=== PATIENT | male | born 1960 | race Caucasian/White ===

== ENCOUNTER → 2018-08-03 08:51 | Outpatient (CLI) | payer MEDICARE ==
[~2018-08-03] VITALS: Ht 185.4 cm; Wt 120.9 kg
--- NOTE | ~2018-08-03 | OP ---
PATIENT NAME: SARBJIT CONNER MEDICAL RECORD: [id number] :56 LOCATION:D.CAT ADMISSION DATE: SURGEON: DEBRA JOSE MD DATE OF OPERATION: 08/03/2018 PROCEDURES: 1. Aortic root angiography. 2. Left heart catheterization. 3. Selective coronary angiography. 4. Left ventriculogram. 5. Intravascular ultrasound of LAD. 6. PTCA and stent, LAD. 7. PTCA and stent, RCA. INDICATION: Unstable angina and coronary disease. PROCEDURE IN DETAIL: After informed consent was obtained with detailed description of risks and benefits as well as alternative therapies, the patient elected to proceed with angiogram and angioplasty. The right radial area was prepped and draped in normal sterile fashion. Right radial artery was cannulated via modified Seldinger technique with placement of 6-Gabonese sheath. All catheters were exchanged through this sheath. FINDINGS: Aortic root angiography was performed. The ascending root appears to be normal. There does not appear to be any aneurysmal dilatation. Left ventriculogram was performed in standard 30-degree BALDWIN view, reveals good cardiac wall motion throughout all segments. Overall ejection fraction estimated at 55% to 60%. SELECTIVE CORONARY ANGIOGRAPHY: 1. Left main shows no significant angiographic disease. 2. Left anterior descending has 80% stenosis, confirmed by intravascular ultrasound throughout the mid vessel. 3. Left circumflex has moderate irregularities, but no flow-limiting stenosis. 4. Right coronary has previously placed stents. There is 95% in-stent restenosis in the mid vessel. PTCA AND STENT OF LAD AND RCA: The LAD was addressed with a 3.5 x 22 and 3.5 x 8 mm Warren stents. The RCA was addressed with a 4.5 x 26 mm Warren stent. Result was 0% residual stenosis. OVERALL IMPRESSION: Successful PTCA and stent of the LAD and RCA, going from 80% to 95% initial stenoses to 0% residual. TRANSINT:[id number] Voice Confirmation ID: [id number] DOCUMENT ID: [id number] OPERATIVE REPORT [id number] SARBJIT CONNER JEFFREY MD at 1856 CC: [id number] DICTATION DATE: 08/03/18 1109 [employer] AND FORMER [employer]IC: 08/03/18 [id number] [place] [address]
--- NOTE | ~2018-08-03 | HEMODYNAMI ---
PATIENT:SARBJIT CONNER MEDICAL RECORD: [id number] : 56 LOCATION:[facility] ADMISSION DATE: 08/03/18 Generatedon:08/03/201811:11 Patient name: SARBJIT CONNER Patient #: [id number] SSN: : 1960 Date of study: 08/03/2018 Page: Of Hemodynamic Procedure Report Patient Data Patient Demographics Procedure consent was obtained First Name: SARBJIT Gender: Male Last Name: DALILA : 1960 Patient #: [id number] Age: 58 year(s) Race: Unknown Additional ID: [id number] Contact details [address]: [address] [place] [address] State: [place] City: [place] Zip code: [address] Admission Admission Data Admission Date: 08/03/2018 Admission Time: 8:51 Procedure Procedure Types Cath Procedure Diagnostic Procedure LHC LHC w/Coronaries FFR/IVUS Intra-Coronary IVUS Initial Aortic Root Angiography Sedation Charges Moderate Sedation up to 15 minutes PCI Procedure Coronary Stent Coronary Stent Initial x2 Procedure Description Procedure Date Procedure Date: 08/03/2018 Procedure Start Time: 10:42 Procedure End Time: 11:06 Procedure Staff Name Function Navjot Schneider MD Performing Physician Harika Ramírez RT Monitor Marie Cabrera RT Scrub Nereida Romero RN Nurse Procedure Data Cath Procedure Fluoroscopy Diagnostic fluoroscopy Total fluoroscopy Time: 7.7 time: 7.7 min min Diagnostic fluoroscopy Total fluoroscopy dose: dose: 1906 mGy 1906 mGy Contrast Material Contrast Material Type Amount (ml) Isovue 300 173 Entry Location Entry Primary Successful Side Size Upsize Upsize Entry Closure Luna ccessful Closure Location (Fr) 1 (Fr) 2 (Fr) Remarks Device Remarks Radial Right 6 Fr Mechanical artery Short Compression Estimated blood loss: 5 ml Diagnostic catheters Device Type Used For End Catheter Placement DIAGNOSTIC [place] 110cm 5 Multi-vessel Fr catheter ([id number]) Angiography DIAGNOSTIC Pigtail 5Fr Aortic Root catheter ([id number]) Angiography Procedure Complications No complications Procedure Medications Medication Administration Route Dosage Oxygen etCO2 Nasal cannula 2 l/min Lidocaine 2% added to field 20 Heparin Flush Bag added to field 2 bags (1000units/500ml NS) 0.9% NaCl I.V. 100 ml/hr Radial Cocktail I.A. 1 syringe (Verapomil 2mg/Nitro 400mcg/Heparin 1500units) Versed I.V. 2 mg Fentanyl I.V. 100 mcg Versed I.V. 1 mg Fentanyl I.V. 50 mcg Heparin Bolus I.V. 4000 units Integrilin (Bolus I.V. 10.7 ml 2mg/ml) Versed I.V. 1 mg Fentanyl I.V. 50 mcg Plavix P.O. 600 mg Hemodynamics Rest Heart Rate: 76 (bpm) Pressure Samples Time Site Value (mmHg) Purpose Heart Use Rate(bpm) 10:44 LV 109/-10,14 Snapshot 81 Snapshots Pre Cath Intra NCS Post Cath Vital Signs Time Heart Resp SPO2 etCO2 NIBP Rhythm Pain Sedation Rate (ipm) (%) (mmHg) (mmHg) Status Level (bpm) 10:12:52 75 16 94 0 121/70(95) NSR 0 (11) 10(A) , No pain 10:17:02 82 20 92 0 120/70(85) NSR 0 (11) 10(A) , No pain 10:21:14 74 17 94 25.6 107/60(84) NSR 0 (11) 10(A) , No pain 10:25:26 73 17 94 18.8 122/65(90) NSR 0 (11) 10(A) , No pain 10:29:40 75 15 93 37.7 112/63(86) NSR 0 (11) 10(A) , No pain 10:33:52 76 16 93 33.9 104/65(85) NSR 0 (11) 10(A) , No pain 10:38:01 75 15 93 36.2 100/64(83) NSR 0 (11) 9(A) , No pain 10:42:11 77 14 93 48.2 109/60(81) NSR 0 (11) 9(A) , No pain 10:46:27 77 13 92 36.9 92/49(72) NSR 0 (11) 9(A) , No pain 10:50:37 81 14 93 37.7 97/53(75) NSR 0 (11) 9(A) , No pain 10:54:43 82 14 92 39.9 96/57(72) NSR 0 (11) 9(A) , No pain 10:58:53 84 13 93 45.9 94/57(69) NSR 0 (11) 9(A) , No pain 11:03:03 87 25 93 37.6 106/52(79) NSR 0 (11) 9(A) , No pain 11:07:17 87 14 93 30.1 98/60(83) NSR 0 (11) 10(A) , No pain Medications Time Medication Route Dose Verified Delivered Reason Not es Effectiveness by by 10:15:33 Oxygen etCO2 2 l/min Navjotjordan Ramachandranie used for Nasal Jennie Romero RN procedure cannula 10:15:40 Lidocaine 2% added 20ml Navjotjordan Morfin for local to vial Jennie Schneider MD anesthetic field 10:15:45 Heparin Flush added 2 bags Navjot Morfin used for Bag to Jennie Schneider MD procedure (1000units/500ml field NS) 10:15:52 0.9% NaCl I.V. 100 Navjot Buffie Per physician ml/hr Jennie Romero RN 10:33:51 Versed I.V. 2 mg Navjot Ramachandranie for sedation Jennie Romero RN 10:33:57 Fentanyl I.V. 100 mcg Navjot Ramachandranie for sedation Jennie Romero RN 10:40:17 Versed I.V. 1 mg Navjot Ramachandranie for sedation Jennie Romero RN 10:40:21 Fentanyl I.V. 50 mcg Navjot Padron for sedation Jennie Romero RN 10:43:52 Radial Cocktail I.A. 1 Navjot Morfin for (Verapomil syringe Jennie Schneider MD vasodilation 2mg/Nitro 400mcg/Heparin 1500units) 10:48:45 Heparin Bolus I.V. 4000 Navjot Ramachandranie for LARISA IFIED units Jennie Romero RN anticoagulation WITH DR SCHNEIDER 10:51:58 Integrilin I.V. 10.7 ml Navjot Padron for WAS ALINE (Bolus 2mg/ml) Jennie Romero RN antiplatelet 9.3 ML therapy OF VIAL 10:57:47 Versed I.V. 1 mg Navjot Buffie for sedation Jennie Romero RN 10:57:50 Fentanyl I.V. 50 mcg Navjot quick sedation Jennie Romero RN 11:07:34 Plavix P.O. 600 mg Navjot Romero RN antiplatelet therapy Procedure Log Time Note 10:01:32 Diagnostic Cath Status : Elective 10:01:50 Nereida Romero RN sent for patient. Start room use. 10:01:51 Time tracking: Regular hours (M-F 7:00 - 5:00) 10:01:55 Plan of Care:Hemodynamics will remain stable., Cardiac rhythm will remain stable., Comfort level will be maintained., Respiratory function will remain adequate., Patient/ family verbilizes understanding of procedure., Procedure tolerated without complication., Recovers from procedure without complications.. 10:05:52 Patient received from Pre/Post Procedure Room to CCL 2 Alert and oriented. Tansferred to table in Supine position. 10:05:53 Warm blankets applied, and adi hugger turned on for patient comfort. 10:05:53 Correct patient and procedure confirmed by team. 10:05:54 Signed procedure consent form obtained from patient. 10:05:55 ECG and BP/O2 sat monitors applied to patient. 10:11:45 Vital chart was started 10:11:47 Baseline sample Acquired. 10:11:52 Rhythm: sinus rhythm 10:11:53 Full Disclosure recording started 10:11:57 H&P Date Dictated: 08/03/2018 Within 30 days and on chart., H&P Addendum completed by physician on day of procedure. (MUST COMPLETE FOR ALL OUTPATIENTS). 10:11:58 Pre-procedure instructions explained to patient. 10:11:59 Pre-op teaching completed and patient verbalized understanding. 10:12:02 Family in patients room. 10:12:04 Patient NPO since Midnight. 10:12:05 Is the patient allergic to Iodine/contrast media? No. 10:12:06 Was the patient premedicated? No 10:12:07 Is patient on blood thinner?Yes 10:12:39 patient states stopped Curly 08-01-18 10:12:50 Patient diabetic? No. 10:12:59 Previous problem with sedation/anesthesia? No ? 10:13:03 Snore? Yes 10:13:04 Sleep apnea? No 10:13:05 Deviated septum? No 10:13:06 Opens mouth fully? Yes 10:13:06 Sticks out tongue? Yes 10:13:11 Airway obstruction? Yes copd 10:13:13 Dentures? No ? 10:13:18 Pre procedure: right dorsailis pedis pulse 2+ Normal; easily identifiable; not easily obliterated 10:13:20 Pre procedure: left dorsailis pedis pulse 2+ Normal; easily identifiable; not easily obliterated 10:13:22 Patient pain scale 0/10 ?. 10:13:26 IV patent on arrival in left forearm with 0.9% NaCl at [facility]. 10:13:28 Lab results completed and on chart. 10:13:33 Right Radial & Right Groin area was prepped with chlora-prep and draped in sterile fashion 10:13:33 Alarms reviewed by R. N. 10:13:34 Sharps counted by scrub and verified by R.N. 10:15:33 Oxygen 2 l/min etCO2 Nasal cannula was administered by Nereida Romero RN; used for procedure; 10:15:40 Lidocaine 2% 20ml vial added to field was administered by Navjot Schneider MD; for local anesthetic; 10:15:45 Heparin Flush Bag (1000units/500ml NS) 2 bags added to field was administered by Navjot Schneider MD; used for procedure; 10:15:52 0.9% NaCl 100 ml/hr I.V. was administered by Nereida Romero RN; Per physician; 10:32:49 Physician arrived 10:32:49 --------ALL STOP TIME OUT------ 10:32:50 Final Timeout: patient, procedure, and site verified with staff and physician. All members of the team are in agreement. 10:32:57 Right Radial & Right Groin site verified by team. 10:33:01 Physical assessment completed. ASA score P 2 - A patient with mild systemic disease as per Navjot Schneider MD. 10:33:05 Sedation plan: IV Moderate Sedation Medication:Versed, Fentanyl 10:33:16 Use device set Radial Dx or PCI 10:33:17 ACIST Syringe (32036) opened to sterile field. 10:33:17 Medline Cath Pack ([id number]) opened to sterile field. 10:33:18 Bag Decanter () opened to sterile field. 10:33:18 DIAGNOSTIC WIRE .035 260cm J wire (735542) opened to sterile field. 10:33:19 ACIST Hand Control (66072) opened to sterile field. 10:33:19 ACIST Manifold (64333) opened to sterile field. 10:33:20 Tegaderm 4 x 4 (1626W) opened to sterile field. 10:33:21 MBrace Wrist Support ([id number]) opened to sterile field. 10:33:43 SHEATH 6FR Slender ([id number]) opened to sterile field. 10:33:51 Versed 2 mg I.V. was administered by Nereida Romero RN; for sedation; 10:33:57 Fentanyl 100 mcg I.V. was administered by Nereida Romero RN; for sedation; 10:40:17 Versed 1 mg I.V. was administered by Nereida Romero RN; for sedation; 10:40:21 Fentanyl 50 mcg I.V. was administered by Nereida Romero RN; for sedation; 10:42:06 Procedure started. 10:42:20 Local anesthetic to right radial artery with Lidocaine 2% by Navjot Schneider MD.INITIAL ACCESS ONLY 10:43:17 A 6 Fr Short sheath was inserted into the Right Radial artery 10:43:25 A DIAGNOSTIC [place] 110cm 5 Fr catheter ([id number]) was advanced over the wire and used for Multi-vessel Angiography. 10:43:52 Radial Cocktail (Verapomil 2mg/Nitro 400mcg/Heparin 1500units) 1 syringe I.A. was administered by Navjot Schneider MD; for vasodilation; 10:44:40 LV hemodynamics recorded. 10:44:41 LV gram done using BALDWIN 10:44:46 Injector settings: Ml/sec: 5, Volume: 15, 10:44:51 EF : 60 % 10:45:16 RCA angiography performed. 10:45:18 Injector settings: Ml/sec: 3, Volume: 6, 10:45:45 LCA angiography performed. 10:45:50 Injector settings: Ml/sec: 3, Volume: 6, 10:47:03 Catheter removed. 10:47:08 Proceeding to intervention. 10:47:58 [place] IVUS Catheter ([id number]) opened to sterile field. 10:48:00 GUIDE 6FR XBLAD 3.5 catheter ([id number]) opened to sterile field. 10:48:01 CHOICE PT Extra Support 182cm wire ([id number]) opened to sterile field. 10:48:02 INFLATOR Merit BasDavidpak (GR1458) opened to sterile field. 10:48:21 6 Fr xblad 3.5 guide catheter was inserted over the wire 10:48:27 choice pt wire advanced. 10:48:45 Heparin Bolus 4000 units I.V. was administered by Nereida Romero RN; for anticoagulation; VERIFIED WITH DR SCHNEIDER 10:49:55 Wire advanced across lesion. 10:49:58 IVUS catheter advanced over wire. 10:51:58 Integrilin (Bolus 2mg/ml) 10.7 ml I.V. was administered by Nereida Romero RN; for antiplatelet therapy; WASTED 9.3 ML OF VIAL 10:52:17 IVUS pass to LAD lesion performed. 10:52:18 IVUS catheter removed over wire. 10:53:41 Place stent Inflation Number: 1 A TAD RX 3.5 x 22 stent ([id number]) was prepped and advanced across the Prox LAD. The stent was deployed at 17 MARVA for 0:10 (min:sec). 10:54:22 Stent catheter was removed intact over wire. 10:55:40 Place stent Inflation Number: 2 A TAD RX 3.5 x 08 stent ([id number]) was prepped and advanced across the Prox LAD. The stent was deployed at 17 MARVA for 0:10 (min:sec). 10:56:09 Stent catheter was removed intact over wire. 10:56:13 Wire removed. 10:56:13 Guide catheter removed. 10:56:31 GUIDE 6FR AR 2.0 catheter ([id number]) opened to sterile field. 10:56:45 6 Fr ar 2 guide catheter was inserted over the wire 10:57:47 Versed 1 mg I.V. was administered by Nereida Romero RN; for sedation; 10:57:50 Fentanyl 50 mcg I.V. was administered by Nereida Romero RN; for sedation; 10:59:23 choice pt wire advanced. 10:59:27 Wire advanced across lesion. 11:00:22 Inflate balloon Inflation number: 1 A EUPHORA 3.5 x 15 Balloon ([id number]) was prepped and advanced across the Mid RCA, then inflated to 21 MARVA for 0:10 (min:sec). 11:00:37 Balloon removed over the wire. 11:01:18 Place stent Inflation Number: 2 A TAD RX 4.5 x 26 stent ([id number]) was prepped and advanced across the Mid RCA. The stent was deployed at 17 MARVA for 0:10 (min:sec). 11::41 Stent catheter was removed intact over wire. 11::41 Wire removed. 11:01:42 Guide catheter removed. 11:01:59 A DIAGNOSTIC Pigtail 5Fr catheter ([id number]) was advanced over the wire and used for Aortic Root Angiography. 11:03:59 Aortic Root visualized 11:04:00 Catheter removed. 11:04:40 TR BAND Large ([id number]) opened to sterile field. 11:04:52 Sheath removed intact; hemostasis achieved with Mechanical Compression to the Right Radial artery. 11:04:55 Procedure ended.(Physican Out) 11:05:36 Fluoroscopy time 07.70 minutes. 11:05:40 Fluoroscopy dose: 1906 mGy 11:05:40 Flurop Dose total: 1906 11:05:45 Contrast amount:Isovue 300 173ml. 11:05:46 Sharps counted by scrub and verified by R.N. 11:05:49 TR band inflated with 12cc of air. 11:05:54 Insertion/operative site no bleeding no hematoma. 11:05:58 Post right radial artery:stable 11:06:00 Post Procedure Pulses reassessed and unchanged 11:06:02 Post procedure rhythm: unchanged. 11:06:05 Estimated blood loss: 5 ml 11:06:06 Post procedure instruction explained to patient.Patient verbalizes understanding. 11:06:07 Patient needs reinforcement of post procedure teaching. 11:06:38 Procedure type changed to Cath procedure, Diagnostic procedure, LHC, LHC w/Coronaries, FFR/IVUS, Intra-Coronary IVUS Initial, Aortic Root Angiography, Sedation Charges, Moderate Sedation up to 15 minutes, PCI procedure, Coronary Stent, Coronary Stent Initial x2 11:06:39 Procedure and supply charges have been captured, reviewed, submitted and are correct. 11:06:43 Procedure Complication : No complications 11:06:46 Vital chart was stopped 11:06:46 See physician's report for complete and final results. 11:06:48 Report given to Pre/Post Procedure Room. 11:06:51 Patient transfered to Pre/Post Procedure Room with Stretcher. 11:06:53 Procedure ended. 11:06:53 Full Disclosure recording stopped 11:07:17 ACC-PCI Only Patient was given prescriptions, or instructed by Navjot Schneider MD to start/continue the following medications upon discharge: Plavix 11:07:19 End room use (Document Last) 11:07:34 Plavix 600 mg P.O. was administered by Nereida Romero RN; for antiplatelet therapy; Intervention Summary Intervention Notes Time ActionType Lesion and Equipment Used Action# Pressure Duration Attributes 10:53:41 Place stent Prox LAD TAD RX 3.5 x 1 17 00:10 22 stent ([id number]) 10:55:40 Place stent Prox LAD TAD RX 3.5 x 2 17 00:10 08 stent ([id number]) 11:00:22 Inflate Mid RCA EUPHORA 3.5 x 1 21 00:10 balloon 15 Balloon ([id number]) 11:01:18 Place stent Mid RCA TAD RX 4.5 x 2 17 00:10 26 stent ([id number]) Device Usage Item Name Manufacture Quantity Catalog Number Hospital Part Current M inimal Lot# / Charge Number Stock Stock Serial# Code ACIST Syringe Acist 1 32168 613343 707798 785602 2 0 (51956) Medical Systems Inc Medline Cath Medline 1 [id number] 368583 27426 218583 5 Pack ([id number]) Bag Decanter Microtek 1 750474 74928 764393 5 () Medical Inc. DIAGNOSTIC [place] 1 712807 623237 472318 685492 3 0 WIRE .035 260cm J wire (402536) ACIST Hand Acist 1 10055 915012 955791 655996 5 Control Medical (60774) Systems Inc ACIST Manifold Acist 1 27028 670090 224870 046901 5 (56739) Medical Systems Inc Tegaderm 4 x 4 3M 1 1626W 863754 242495 329965 5 (1626W) MBrace Wrist Advanced 1 140-0250-00 154238 39694 850100 5 Support Vascular (992397612) Dynamics SHEATH 6FR Terumo 1 [id number] 795095 069386 235571 4 0 Slender ([id number]) DIAGNOSTIC Terumo 1 40-7793 436355 338695 043774 5 [place] 110cm 5 Fr catheter (679778) [place] 1 96614D 985953 314195 239761 8 [place] IVUS Catheter (55994K) GUIDE 6FR Cardinal 1 [id number] 345938 311132 606803 1 0 XBLAD 3.5 Health catheter (98563489) CHOICE PT [place] 1 [id number] 085374 008929 643622 5 Extra Support Scientific 182cm wire (6861125Y4) INFLATOR Merit Merit 1 AP3845 197292 560648 877448 1 5 Health-Connected (PE2939) TAD RX 3.5 x Medtronic 1 [id number] 731764 5451748 081402 5 [id number] 22 stent ([id number]) TAD RX 3.5 x Medtronic 1 [id number] 802513 1762845 913178 5 [id number] 08 stent ([id number]) GUIDE 6FR AR Medtronic 1 [id number] 557980 04516 953009 1 2.0 catheter (US7CF17) EUPHORA 3.5 x Medtronic 1 [id number] 602724 932453 828291 5 [id number] 15 Balloon ([id number]) TAD RX 4.5 x Medtronic 1 [id number] 721390 6575935 839186 5 [id number] 26 stent ([id number]) DIAGNOSTIC Cardinal 1 [id number] 904750 527224 435916 5 Pigtail 5Fr Health catheter (091309M) TR BAND Large Terumo 1 [id number] 001087 842230 221485 4 0 ([id number]) Signature Audit [place] Stage Time Signature Unsigned Intra-Procedure 08/03/2018 Harika Ramírez 11:11:20 AM RT(R) Signatures Monitor : Harika Ramírez RT Signature : Date : Time : [address] [place] [address]
[~2018-08-03 08:51] MED LIST: ELIQUIS2.5 MG PO; LASIX40 MG PO; LIPITOR80 MG PO; METOPROLOL TART50 MG PO; NAPROSYN500 MG PO; PLAVIX75 MG PO; VENTOLIN HFA18 GM INH
[2018-08-03 09:29] VITALS: BP 152/80; Ht 185.4 cm; Wt 120.9 kg
[2018-08-03 09:34] LABS: BASOPHILS 0.1 % (0-2); EOSINOPHILS 0.8 % (0-7); HEMATOCRIT 51.4 % (42.0-54.0); IMMATURE GRANULOCYTES 0.5 % (0-5); LYMPHOCYTES 17.4 % (15-50); MCH 31.8 pg (26.0-34.0); MCHC 33.1 g/dL (31.0-37.0); MCV 96.3 fL (80.0-100.0); MEAN PLATELET VOLUME 11.2 fL (7.4-10.4); MONOCYTES 10.4 % (2-11); NEUTROPHILS 70.8 % (40-80); PLATELET COUNT 163 10x3/uL (130-400); RBC 5.34 10x6/uL (4.20-6.10); RDW 14.9 % (11.5-14.5); WBC 7.7 10x3/uL (4.8-10.8)
[2018-08-03 09:48] LABS: ANION GAP 10.8 mmol/L (8-16); CALCIUM 8.8 mg/dL (8.5-10.1); CARBON DIOXIDE 28.7 mmol/L (21.0-32.0); CREATININE - SERUM 1.2 mg/dL (0.6-1.3); POTASSIUM - SERUM 4.5 mmol/L (3.5-5.1)
== END | disposition home or self-care (01) ==
LOC: D.CATH 08:51
PROVIDERS: Internal Medicine Interventional Cardiology
DX: I25.110 Atherosclerotic heart disease of native coronary artery with unstable angina pectoris (principal); T82.855A Stenosis of coronary artery stent, initial encounter; Z01.812 Encounter for preprocedural laboratory examination
CPT/HCPCS: 92978; 93458; 93567; C9600 ×2